=== PATIENT | female | born 1980 | race Caucasian/White ===

== ENCOUNTER → 2016-10-08 | Outpatient (CLI) | payer OTHER ==
--- OUTSIDE RECORDS SUMMARY | 2016-10-08 16:44 | XMS REPORT | Continuity of Care Document ---
Author Author [facility] Organization [facility] Address Unknown Phone Unavailable Care Team Providers Care Addresser Name Role Phone No Pcp, Na PCP Unavailable Source Comments Some departments are not documenting in the electronic medical record. If you do not see the information that you expected, contact Release of Information in the Health Information Management department at [phone] for further assistance in locating additional records.[facility] Active Allergies and Adverse Reactions Allergen Noted Date Severity Reactions Comments Sulfa (Sulfonamide 03/03/2015 Low UNKNOWN Not sure what type of Antibiotics) reaction occurs just knows that cannot take this medication Current Medications Prescription Sig. Disp. Refills Start End Date Status Date MULTIVITAMINS WITH Take by mouth daily. Active FLUORIDE (MULTI-VITAMIN PO) omeprazole DR(+) Take 40 mg by mouth Active (PRILOSEC) 40 mg capsule daily. levonorgestrel/ethinyl Take 1 Tab by mouth Active estradiol (AVIANE) 0.1 daily. mg/20 mcg tablet azithromycin (ZITHROMAX) Take 250 mg by mouth Active 250 mg tablet daily. Z-NAPOLEON: Take 2 tabs by mouth on day 1, followed by 1 tab by mouth daily on days 2-5. baclofen (LIORESAL) 10 mg Take 10 mg by mouth three Active tablet times daily. Biotin 2,500 mcg cap Take by mouth. Active fish oil /omega-3 fatty Take 1 Cap by mouth Active acids (SEA-OMEGA) daily. 340/1000 mg capsule hydrOXYzine (ATARAX) 25 Take 25 mg by mouth three Active mg tablet times daily as needed for Itching. hyoscyamine (LEVSIN/SL) Place 125 mcg under Active 0.125 mg tablet tongue every 4 hours as needed for Cramps. norethindrone/ethinyl Take 1 Tab by mouth Active estradiol/iron(+) daily. (LOESTRIN FE 08/27 (28-DAY)) 1 mg/20 mcg tablet loratadine (CLARITIN) 10 Take 10 mg by mouth Active mg tablet daily. naproxen (NAPROSYN) 500 Take 500 mg by mouth Active mg tablet twice daily with meals. mometasone (NASONEX) 50 Apply 2 Sprays to each Active mcg/actuation nasal spray nostril as directed daily. albuterol (VENTOLIN HFA, Inhale 2 Puffs by mouth Active PROAIR HFA) 90 every 6 hours as needed mcg/actuation inhaler for Wheezing. Active Problems Problem Noted Date Pelvic pain in female 03/03/2015 Well woman exam with routine gynecological exam 03/03/2015 Dyspareunia due to medical condition in female patient 03/03/2015 Dysmenorrhea 03/03/2015 Vaginal discharge 03/03/2015 Perimenopausal vasomotor symptoms 03/03/2015 control counseling 03/03/2015 Social History Tobacco Use Types Packs/Day Years Used Date Never Smoker Alcohol Use Drinks/Week oz/Week Comments No 0 Standard 0.0 drinks or equivalent Last Filed Vital Signs Vital Sign Reading Time Taken Blood Pressure 140/80 03/03/2015 10:32 AM CDT Pulse - - Temperature - - Respiratory Rate - - Height 1.549 m (5' 1") 03/03/2015 10:32 AM CDT Weight 74.844 kg (165 lb) 03/03/2015 10:32 AM CDT Body Mass Index 31.19 03/03/2015 10:32 AM CDT Oxygen Saturation - - Plan of Care Health Maintenance Due Date Last Done Comments Physical (Comprehensive) 1987 Exam Influenza Vaccine 04/08/2016 Cervical Cancer Screening 03/03/2018 03/03/2015 Tetanus Vaccine 07/16/2023 07/16/2013 (Previously completed) Pertussis Vaccine Addressed 07/16/2013 (Previously completed) Overridden with the intention of not completing the topic Results from Last 3 Months Not on file
== END ==
LOC: RT 16:41
PROVIDERS: ATTEND Nurse Practitioner
DX: R06.02 Shortness of breath (principal); R06.2 Wheezing
CPT/HCPCS: 94060; 94726; 94729

== ENCOUNTER → 2018-04-11 | Outpatient (CLI) | payer OTHER ==
[~2018-04-11] MED LIST: CHOL200085 PO; CHOL500049 PO; PANT40TA2 PO
== END | disposition home or self-care (01) ==
LOC: PREOP 05:37
PROVIDERS: ATTEND Surgery
DX: Z01.818 Encounter for other preprocedural examination (principal)

== ENCOUNTER 2018-04-17 07:08 | Day surgery (SDC) | payer BC, OTHER ==
[~2018-04-17] VITALS: Ht 156.2 cm; Wt 77.6 kg
--- OUTSIDE RECORDS SUMMARY | 2018-04-17 07:12 | XMS REPORT | Clinical Summary ---
Author Author [facility] Organization [facility] Address Unknown Phone Unavailable Care Team Providers Care Informatics Nurse Name Role Phone Padmini Gold MD Unavailable Unavailable No Pcp, Na PCP Unavailable Olivia Thomas MD Unavailable Aurelio Ram MD Unavailable Source Comments Some departments are not documenting in the electronic medical record. If you do not see the information that you expected, contact Release of Information in the Health Information Management department at [phone] for further assistance in locating additional records.[facility] Allergies Active Allergy Reactions Severity Noted Date Comments Sulfa (Sulfonamide UNKNOWN Low 03/03/2015 Not sure what type of Antibiotics) reaction [...] Perimenopausal vasomotor symptoms 03/03/2015 control counseling 03/03/2015 Family History Medical History Relation Name Comments Diabetes Maternal Grandmother Heart Disease Maternal Grandmother Relation Name Status Comments Maternal Grandmother Social History Tobacco Use Types Packs/Day Years Used Date Never Smoker Alcohol Use Drinks/Week oz/Week Comments No 0 Standard 0.0 drinks or equivalent Sex Assigned at Date Recorded Not on file Last Filed Vital Signs Vital Sign Reading Time Taken Blood Pressure 140/80 03/03/2015 10:32 AM CDT Pulse - - Temperature - - Respiratory Rate - - Oxygen Saturation - - Inhaled Oxygen - - Concentration Weight 74.8 kg (165 lb) 03/03/2015 10:32 AM CDT Height 154.9 cm (5' 1") 03/03/2015 10:32 AM CDT Body Mass Index 31.18 03/03/2015 10:32 AM CDT Plan of Treatment Health Maintenance Due Date Last Done Comments PHYSICAL (COMPREHENSIVE) 1987 EXAM HIV SCREENING 1995 CERVICAL CANCER SCREENING 03/03/2018 03/03/2015 INFLUENZA VACCINE 05/08/2018 TETANUS VACCINE 07/16/2023 07/16/2013 (Previously completed) PERTUSSIS VACCINE Addressed 07/16/2013 (Previously completed) Overridden with the intention of not completing the topic Results Not on filefrom Last 3 Months
--- OUTSIDE RECORDS SUMMARY | 2018-04-17 07:13 | XMS REPORT | Continuity of Care Document ---
Demographics Preferred Language Unknown Marital Status Unknown Jainism Affiliation Unknown Race Unknown Ethnic Group Unknown Author Author [facility] Address Unknown Phone Unavailable Allergies Active Description Code Type Severity Reaction Onset Reported/Identified Relationship to Patient Clinical Status Yes No Known Drug Allergies [id number] Drug Allergy Unknown N/A 07/22/2010 Medications There is no data. Problems Date Dx Coded Attending Type Code Diagnosis Diagnosed By 06/24/2009 461.8 OTHER ACUTE SINUSITIS 06/24/2009 536.8 DYSPEPSIA AND OTHER SPECIFIED DISORDERS OF FUNCTION OF STOMACH 06/24/2009 787.91 DIARRHEA 07/23/2010 Ot 574.00 07/23/2010 Ot 574.10 01/31/2012 564.1 IRRITABLE BOWEL SYNDROME 08/25/2015 Ot 240.9 08/25/2015 Ot 787.91 08/25/2015 Ot 789.00 01/02/2016 ANDERS AVENDANO MYCOLOGIST Ot R06.00 DYSPNEA, UNSPECIFIED 01/02/2016 ANDERS AVENDANO MYCOLOGIST Ot R07.89 OTHER CHEST PAIN 01/02/2016 ANDERS AVENDANO MYCOLOGIST Ot R60.0 LOCALIZED EDEMA 01/02/2016 ANDERS AVENDANO MYCOLOGIST Ot R06.00 DYSPNEA, UNSPECIFIED 01/02/2016 ANDERS AVENDANO MYCOLOGIST Ot R07.89 OTHER CHEST PAIN 01/02/2016 ANDERS AVENDANO MYCOLOGIST Ot R60.0 LOCALIZED EDEMA 01/02/2016 LAURA HENDRIX DC Ot M25.511 PAIN IN RIGHT SHOULDER 01/02/2016 ANDERS AVENDANO MYCOLOGIST Ot R06.00 DYSPNEA, UNSPECIFIED 01/02/2016 ANDERS AVENDANO MYCOLOGIST Ot R07.89 OTHER CHEST PAIN 01/02/2016 ANDERS AVENDANO MYCOLOGIST Ot R60.0 LOCALIZED EDEMA 01/02/2016 ANDERS AVENDANO MYCOLOGIST Ot R06.00 DYSPNEA, UNSPECIFIED 01/02/2016 ANDERS AVENDANO MYCOLOGIST Ot R07.89 OTHER CHEST PAIN 01/02/2016 ANDERS AVENDANO MYCOLOGIST Ot R60.0 LOCALIZED EDEMA 01/06/2016 ANDERS AVENDANO MYCOLOGIST Ot R06.00 DYSPNEA, UNSPECIFIED 01/06/2016 ANDERS AVENDANO Jimmie MYCOLOGIST Ot R07.89 OTHER CHEST PAIN 01/06/2016 ANDERS AVENDANO MYCOLOGIST Ot R60.0 LOCALIZED EDEMA 01/06/2016 ANDERS AVENDANO Jimmie MYCOLOGIST Ot R06.00 DYSPNEA, UNSPECIFIED 01/06/2016 ANDERS AVENDANO Jimmie MYCOLOGIST Ot R07.89 OTHER CHEST PAIN 01/06/2016 ANDERS AVENDANO Jimmie MYCOLOGIST Ot R60.9 EDEMA, UNSPECIFIED 01/16/2016 ANDERS AVENDANO Jimmie MYCOLOGIST Ot R06.00 DYSPNEA, UNSPECIFIED 01/16/2016 ANDERS AVENDANO Jimmie MYCOLOGIST Ot R07.89 OTHER CHEST PAIN 01/16/2016 ANDERS AVENDANO Jimmie MYCOLOGIST Ot R60.0 LOCALIZED EDEMA 01/16/2016 ANDERS AVENDANO Jimmie MYCOLOGIST Ot R06.00 DYSPNEA, UNSPECIFIED 01/16/2016 ANDERS AVENDANO Jimmie MYCOLOGIST Ot R07.89 OTHER CHEST PAIN 01/16/2016 ANDERS AVENDANO Jimmie MYCOLOGIST Ot R60.0 LOCALIZED EDEMA 04/01/2016 Ot 240.9 GOITER NOS 04/01/2016 Ot 787.91 DIARRHEA 04/01/2016 Ot 789.00 ABDOMINAL PAIN, UNSPECIFIED SITE 04/01/2016 ANDERS AVENDANO Jimmie MYCOLOGIST Ot R06.00 DYSPNEA, UNSPECIFIED 04/01/2016 ANDERS AVENDANO Jimmie MYCOLOGIST Ot R07.89 OTHER CHEST PAIN 04/01/2016 ANDERS AVENDANO Jimmie MYCOLOGIST Ot R60.9 EDEMA, UNSPECIFIED 04/01/2016 ANDERS AVENDANO Jimmie MYCOLOGIST Ot R06.00 DYSPNEA, UNSPECIFIED 04/01/2016 ANDERS AVENDANO Jimmie MYCOLOGIST Ot R07.89 OTHER CHEST PAIN 04/01/2016 ANDERS AVENDANO Jimmie MYCOLOGIST Ot R60.0 LOCALIZED EDEMA 04/01/2016 LAURA HENDRIX DC Ot M25.511 PAIN IN RIGHT SHOULDER 04/01/2016 ANDERS AVENDANO Jimmie MYCOLOGIST Ot R06.00 DYSPNEA, UNSPECIFIED 04/01/2016 ANDERS AVENDANO Jimmie MYCOLOGIST Ot R07.89 OTHER CHEST PAIN 04/01/2016 ANDERS AVENDANO Jimmie MYCOLOGIST Ot R60.0 LOCALIZED EDEMA 04/05/2016 NADERS AVENDANO Jimmie MYCOLOGIST Ot R06.00 DYSPNEA, UNSPECIFIED 04/05/2016 ANDERS AVENDANO Jimmie MYCOLOGIST Ot R07.89 OTHER CHEST PAIN 04/05/2016 ANDERS AVENDANO Jimmie MYCOLOGIST Ot R60.0 LOCALIZED EDEMA 04/05/2016 RUMA DC, LAURA J Ot M25.511 PAIN IN RIGHT SHOULDER 09/01/2016 ANDERS AVENDANO Jimmie MYCOLOGIST Ot R06.00 DYSPNEA, UNSPECIFIED 09/01/2016 ANDERS AVENDANO Jimmie MYCOLOGIST Ot R07.89 OTHER CHEST PAIN 09/01/2016 ANDERS AVENDANO Jimmie MYCOLOGIST Ot R60.9 EDEMA, UNSPECIFIED 10/08/2016 RUMA DC, LAURA J Ot M25.511 PAIN IN RIGHT SHOULDER 10/08/2016 ANDERS AVENDANO Jimmie MYCOLOGIST Ot R06.00 DYSPNEA, UNSPECIFIED 10/08/2016 ANDERS AVENDANO Jmimie MYCOLOGIST Ot R07.89 OTHER CHEST PAIN 10/08/2016 ANDERS AVENDANO Jimmie MYCOLOGIST Ot R60.0 LOCALIZED EDEMA 10/08/2016 ANDERS AVENDANO Jimmie MYCOLOGIST Ot R06.00 DYSPNEA, UNSPECIFIED 10/08/2016 ANDERS AVENDANO N MYCOLOGIST Ot R07.89 OTHER CHEST PAIN 10/08/2016 ANDERS AVENDANO Jimmie MYCOLOGIST Ot R60.9 EDEMA, UNSPECIFIED 10/08/2016 ANDERS AVENDANO Jimmie MYCOLOGIST Ot R06.00 DYSPNEA, UNSPECIFIED 10/08/2016 ANDERS AVENDANO Jimmie MYCOLOGIST Ot R07.89 OTHER CHEST PAIN 10/08/2016 ANDERS AVENDANO Jimmie MYCOLOGIST Ot R60.0 LOCALIZED EDEMA 10/11/2016 ANDERS AVENDANO Jimmie MYCOLOGIST Ot R06.02 SHORTNESS OF BREATH 10/11/2016 JUAN ALBERTO ANDERS N MYCOLOGIST Ot R06.2 WHEEZING 10/20/2016 ANDERS AVENDANO Jimmie MYCOLOGIST Ot R06.02 SHORTNESS OF BREATH 10/20/2016 JUAN ALBERTO ANDERS N MYCOLOGIST Ot R06.2 WHEEZING 11/01/2016 ANDERS AVENDANO Jimmie MYCOLOGIST Ot R06.02 SHORTNESS OF BREATH 11/01/2016 JUAN ALBERTO ANDERS N MYCOLOGIST Ot R06.2 WHEEZING Procedures There is no data. Results There is no data. Encounters ACCT No. Visit Date/Time Discharge Status Pt. Type Provider Facility Loc./Unit Complaint [id number] 01/31/2012 15:14:00 Document Registration [id number] 10/08/2016 16:41:00 10/08/2016 23:59:59 CLS Outpatient ANDERS AVENDANO MYCOLOGIST [facility] RT SOB,WHEEZING [id number] 01/02/2016 13:15:00 01/02/2016 23:59:59 CLS Outpatient JUAN ALBERTO ANDERS N MYCOLOGIST [facility] CARD DYSPENA,CHEST TIGHTNESS [id number] 01/01/2016 14:16:00 01/01/2016 23:59:59 CLS Outpatient JUAN ALBERTO ANDERS N MYCOLOGIST [facility] RAD PEDAL EDEMA [id number] 01/01/2016 12:01:00 01/01/2016 23:59:59 CLS Outpatient MICHAEL AVENDANOFANGorge Samuel MYCOLOGIST [facility] CARD DYSPNEA,PEDAL EDEMA , CHEST TIGHTNESS [id number] 08/25/2015 17:20:00 08/25/2015 23:59:59 CLS Outpatient RUMA GEORGE, LAURA Tamayo [facility] RAD RIGHT SHOULDER INTENSE PAIN [id number] 04/17/2018 08:45:00 ASHLY SILVESTRE MD, MELLISA Andrade [facility] ENDO EPIGASTRIC PAIN/BLOATING [id number] 10/20/2012 08:39:00 Document Registration [id number] 10/18/2012 09:58:00 Document Registration [id number] 07/22/2010 15:40:00 Document Registration
[2018-04-17] MEDS ORDERED: NS IV 500 ML 500 ML ONE (07:14)
[2018-04-17] MEDS ORDERED: NS IV 500 ML 500 ML IV PRN (07:26)
[2018-04-17] MEDS ORDERED: HURRICAINE EXT TUBE (BENZOCAINE) XX PRN (07:30)
[2018-04-17] MEDS ORDERED: fentaNYL INJECTION 100 MCG/2 ML AMP IVP ONE (07:30)
[2018-04-17] MEDS ORDERED: MIDAZOLAM 2 MG/2 ML (VERSED) VIAL IVP ONE (07:30)
[2018-04-17 07:43] VITALS: BP 137/83
[2018-04-17] MEDS ORDERED: CHOL500049 PO (08:04)
[2018-04-17] MEDS ORDERED: CHOL200085 PO (08:04)
[2018-04-17] MEDS ORDERED: MIDAZOLAM 2 MG/2 ML (VERSED) VIAL ONE ×4 (08:29→09:05)
[2018-04-17] MEDS ORDERED: HURRICAINE EXT TUBE (BENZOCAINE) ONE (08:30)
--- NOTE | 2018-04-17 09:00 | History & Physicial ---
History of Present Illness History of Present Illness Reason for visit/HPI to undergo an upper endoscopy to investigate epigastric pain Date of Admission 04/17/18 Date Seen by Provider: Apr 17, 2018 Time Seen by Provider: 08:40 I consulted on this patient on 04/17/18 08:56 Attending Physician Mellisa Rashid MD Admitting Physician Ludivina Perez DO Consult Allergies and Home Medications Allergies Coded Allergies: No Known Drug Allergies (Unverified , 07/22/10) Home Medications Cholecalciferol (Vitamin D3) 50,000 Unit Capsule, 50,000 UNIT PO WEEK, (Reported ) Cholecalciferol (Vitamin D3) 2,000 Unit Tablet, 4,000 UNIT PO DAILY, (Reported) Patient Home Medication List Home Medication List Reviewed: Yes Past Mcgmdid-Vooflk-Wotsbp Hx Patient Social History Marrital Status: single Employed/Student: employed Alcohol Use: Denies Use Recreational Drug Use: No Smoking Status: Never a Smoker Recent Foreign Travel: No Contact w/other who traveled: No Recent Hopitalizations: No Recent Infectious Disease Expo: No Seasonal Allergies Seasonal Allergies: No Surgeries Yes Gallbladder Respiratory No Currently Using CPAP: No Currently Using BIPAP: No Cardiovascular No Neurological No Reproductive System Hx Reproductive Disorders: No Sexually Transmitted Disease: No HIV/AIDS: No Female Reproductive Disorders: Denies Gastrointestinal Yes Gastroesophageal Reflux Musculoskeletal No HEENT Loss of Vision: Denies Hearing Impairment: Denies Review of Systems Constitutional: no symptoms reported EENTM: no symptoms reported Respiratory: no symptoms reported Cardiovascular: no symptoms reported Gastrointestinal: see HPI Genitourinary: no symptoms reported Musculoskeletal: no symptoms reported Skin: no symptoms reported Psychiatric/Neurological: No Symptoms Reported Physical Exam Vital Signs Vital Signs - First Documented 04/17/18 07:43 Temp 98.0 Pulse 76 Resp 18 B/P (MAP) 137/83 (101) Pulse Ox 97 O2 Delivery Room Air Capillary Refill : Height, Weight, BMI Height: 5'1.50" Weight: 171lbs. 0.0oz. 77.375738ba; 31.8 BMI Method: General Appearance: No Apparent Distress Neck: Normal Inspection Respiratory: Lungs Clear Cardiovascular: Regular Rate, Rhythm Gastrointestinal: Non Tender, Soft Extremity: Normal Inspection Neurologic/Psychiatric: Alert, Oriented x3 Skin: Warm/Dry Assessment/Plan Assessment and Plan lady with epigastric pain. For upper endoscopy Admission Diagnosis Admission Status: Other (Outpt Proc) MELLISA RASHID MD Apr 17, 2018 09:00
--- NOTE | 2018-04-17 09:00 | Conscious Sedation/ASA ---
Conscious Sedation Pre-Proced Time Reviewed: 09:00 ASA Class: 2 Airway Mallampati Classification: ([place] appropriate class) I. II. III, IV Lungs Heart ASA score ASA 1: a normal healthy patient ASA 2: a patient with a mild systemic disease (mid diabetes, controlled hypertension, obesity ASA 3: a patient with a severe systemic disease that limits activity (angina , COPD, prior Myocardial infarction) ASA 4: a patient with an incapacitating disease that is a constant threat to life (CHF, renal failure) ASA 5: a moribund patient not expected to survive 24 hrs. (ruptured aneurysm) ASA 6: a declared brain patient whose organs are being harvested. For emergent operations, add the letter E after the classification Grade 1 Sedation Plan: Discussed options with patient/fam Note The patient is an appropriate candidate to undergo the planned procedure, sedation, and anesthesia. The patient immediately re-assessed prior to indication. MELLISA SILVESTRE MD Apr 17, 2018 09:00
--- NOTE | 2018-04-17 09:15 | Endo Procedure Record ---
Endo Procedure Report Date of Procedure Last Colonoscopy: No Apr 17, 2018 Surgeon (s) MELLISA SILVESTRE MD Post Procedure/Op Diagnosis grade 3 esophagitis Severe distal gastritis Multiple antral erosions Procedure Performed EGD with antral biopsy for H. pylori Description of Procedure Anesthesia Type: Conscious Sedation Specimen(s) collected/removed antral mucosa for H. pylori Description of the Procedure Indication for the procedure: This young lady came in for an upper endoscopy to evaluate ongoing epigastric pain. Informed consent was obtained after reviewing the procedure in detail. Description of the procedure: She was placed in left lateral decubitus position and her vital signs were monitored. Conscious sedation was achieved using Versed. The flexible gastroscope was then introduced down the esophagus, past the stomach, into the proximal duodenum. Findings: Esophagus: Grade 3 esophagitis Stomach: 1. Severe distal gastritis 2. Multiple antral erosions. Photodocumentation and biopsy for H. pylori were obtained Duodenum: Normal She tolerated the procedure well and was taken back to the nursing area in a stable condition. Impression: Epigastric pain. Esophagitis, severe gastritis and antral erosions. Helicobacter status pending. Copy Copies To 1: CARLOS RICK XAVIER M MD Apr 17, 2018 09:15
[2018-04-17] MEDS ORDERED: PANT40TA2 PO (09:16)
--- NOTE | 2018-04-17 09:17 | Discharge Inst-Simple/Standard ---
Discharge Inst-Standard Discharge Medications New, Converted or Re-Newed RX: RX on Chart Patient Instructions/Follow Up Plan of Care/Instructions/FU: follow-up with Dr. Perez in 2-3 weeks. To avoid nonsteroidals Activity as Tolerated: Yes Discharge Diet: No Restrictions MELLISA SILVESTRE MD Apr 17, 2018 09:17
[2018-04-17 09:45] VITALS: BP 119/56
[2018-04-17 10:15] VITALS: BP 104/56
[2018-04-17 10:40] VITALS: BP 104/56
== END 2018-04-17 10:30 | disposition home or self-care (01) ==
LOC: ENDO 07:08
PROVIDERS: ATTEND Surgery
DX: K21.0 Gastro-esophageal reflux disease with esophagitis (principal); K29.70 Gastritis, unspecified, without bleeding; K25.9 Gastric ulcer, unspecified as acute or chronic, without hemorrhage or perforation
CPT/HCPCS: 84703; 88305

== ENCOUNTER → 2019-05-08 | Outpatient (CLI) | payer BC ==
[~2019-05-08] MED LIST changes: +CHOL200014 PO; -CHOL200085 PO
--- NOTE | 2019-05-08 16:34 | Diagnostic Imaging Report ---
EXAMINATION: Left foot at 2:00 p.m. INDICATION: Medial ankle pain. TECHNIQUE: Three views were obtained. COMPARISON: There are no prior studies available for comparison. FINDINGS: On the AP view, there is a linear calcific density interposed between the first cuneiform and the base of the second metatarsal. This finding cannot be identified on the other two projections but is worrisome for a small avulsion fracture involving the Lisfranc joint. I would recommend that CT be performed for further evaluation of this finding. No other fracture or acute bony abnormality is appreciated. There is a small calcaneal spur. The soft tissues are unremarkable. IMPRESSION: 1. There is a question of an avulsion fracture in the region of the Lisfranc joint. CT would be recommended for further evaluation. 2. There is no acute bony abnormality noted, otherwise. Dictated by: Dictated on workstation # [id number]
--- NOTE | 2019-05-08 17:25 | Diagnostic Imaging Report ---
EXAMINATION: Left ankle. INDICATION: Injury, ankle pain. FINDINGS: Three views were obtained. There are no prior studies available for comparison. There is no fracture, dislocation, or acute bony abnormality evident. The ankle mortise is not widened and the talar dome is smooth. The soft tissues are unremarkable. IMPRESSION: There is no evidence for an acute bony abnormality. Dictated by: Dictated on workstation # [id number]
== END ==
LOC: RAD 14:55
PROVIDERS: ATTEND Chiropractor Sports Physician
DX: S99.912A Unspecified injury of left ankle, initial encounter (principal); X58.XXXA Exposure to other specified factors, initial encounter
CPT/HCPCS: 73610; 73630